=== PATIENT | female | born 1980 | race Caucasian/White ===

== ENCOUNTER 2017-06-22 13:13 | Emergency (ER) | payer SELFPAY ==
[~2017-06-22] VITALS: Ht 175.3 cm; Wt 65.2 kg
[2017-06-22 15:19] LABS: HEMATOCRIT 36.5 % (36.0-46.0); MCH 29.4 PG (29.0-34.0); MCHC 33.2 G/DL (30.0-36.0); MCV 88.8 FL (83-99); MEAN PLAT.VOLUME 10.3 uM^3 (9.5-12.4); PLATELET COUNT 239 K/uL (156-360); RBC DIS.WIDTH-CV 12.8 % (11.8-14.6); RBC DIS.WIDTH-SD 41.6 % (39-53); RED BLOOD COUNT 4.11 M/uL (3.80-5.20); WHITE BLOOD COUNT 5.2 K/uL (4.1-10.2)
[2017-06-22 15:28] LABS: CHLORIDE 106 mEq/L (99-109); POTASSIUM 3.7 mEq/L (3.7-5.4); SODIUM 144 mEq/L (136-147)
[2017-06-22 15:29] LABS: GLUCOSE 91 mg/dL (70-99)
[2017-06-22 15:31] LABS: ANION GAP 14 MEQ/L (2-14)
[2017-06-22 15:33] LABS: GFR ESTIMATE (CALCULATED) > 59 mL/min/
[2017-06-22 15:34] LABS: UREA NITROGEN (BUN) 15 mg/dL (9-23)
[2017-06-22 15:44] LABS: QUANTITATIVE HCG < 4.0 MIU/ML
[2017-06-22 17:57] VITALS: BP 123/66
== END 2017-06-22 17:58 | disposition home or self-care (01) ==
LOC: EME 13:13
DX: K62.5 Hemorrhage of anus and rectum (principal); Z85.43 Personal history of malignant neoplasm of ovary
CPT/HCPCS: 74177; 80048; 84702; 85027; 86850; 86870; 86900; 86901; 99281; 99284; J7030